=== PATIENT | female | born 1970 | race Caucasian/White ===

== ENCOUNTER 2017-09-14 10:45 | Emergency (ER) | payer BC, OTHER, SELFPAY ==
[2017-09-14] MEDS ORDERED: Sodium Chloride 0.9% 1000 ML 1,000 ML IV STA (11:17)
[2017-09-14] MEDS ORDERED: PROTONIX 40 MG IV IV ONE ×2 (11:17→11:25)
--- NOTE | 2017-09-14 11:23 | ERPHSYRPT ---
- History of Present Illness Time Seen by Provider: 09/14/17 10:55 Historian: patient Exam Limitations: no limitations Patient Subjective Stated Complaint: vomiting, diarrhea and pain to mid upper right abd radiating to mid back. 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 n/v/d present report of recent migraine though steele subsided last pm Physician History: mild to mod epigastric cramps for one day rad to back no injury, pt refused pain med, hx GB and hysterectomy, no fever, +NVD, no blood in stool Timing/Duration: yesterday Quality: cramping Abdominal Pain Onset Location: epigastric Pain Radiation: back Severity of Pain-Max: mild Severity of Pain-Current: mild Allergies/Adverse Reactions: Cephalosporins Allergy (Severe, Verified 09/14/17 11:12) ANAPHALAXIS Sulfa (Sulfonamide Antibiotics) Allergy (Severe, Verified 09/14/17 11:12) Swelling Home Medications: Sumatriptan Succinate [Imitrex 50 mg] 100 mg PO Q6H PRN PRN 11/12/15 [History] Nadolol 10 mg PO DAILY 10/20/16 [History] Hx Tetanus, Diphtheria Vaccination/Date Given: Yes (UNKNOWN) Hx Influenza Vaccination/Date Given: Yes Hx Pneumococcal Vaccination/Date Given: No - Review of Systems Constitutional: No Symptoms Eyes: No Symptoms Ears, Nose, & Throat: No Symptoms Respiratory: No Symptoms Cardiac: No Symptoms Abdominal/Gastrointestinal: Abdominal Pain, Nausea, Vomiting, Diarrhea, No Hematochezia Musculoskeletal: Back Pain Skin: No Symptoms Neurological: No Dizziness Psychological: No Symptoms - Past Medical History Pertinent Past Medical History: Yes Neurological History: Migraines ENT History: No Pertinent History Cardiac History: Other Respiratory History: Bronchitis Endocrine Medical History: No Pertinent History Musculoskeletal History: No Pertinent History GI Medical History: No Pertinent History History: No Pertinent History Psycho-Social History: No Pertinent History Female Reproductive Disorders: No Pertinent History Other Medical History: mitral valve prolapse, and arrhythmia - Past Surgical History Past Surgical History: Yes Neuro Surgical History: No Pertinent History Cardiac: No Pertinent History Respiratory: No Pertinent History Gastrointestinal: Cholecystectomy Genitourinary: No Pertinent History Musculoskeletal: No Pertinent History Female Surgical History: Hysterectomy, Tubal Ligation Other Surgical History: breast implants - Social History Smoking Status: Current some day smoker How long have you smoked: 35 Exposure to second hand smoke: Yes Drug Use: none Patient Lives Alone: No - Female History Hx Now: No - Nursing Vital Signs Nursing Vital Signs: Initial Vital Signs Temperature 98.0 F 09/14/17 11:04 Pulse Rate 69 09/14/17 11:04 Respiratory Rate 18 09/14/17 11:04 Blood Pressure 140/65 09/14/17 11:04 Pain Scale Pain Intensity 7 - Physical Exam General Appearance: no apparent distress Eye Exam: eyes nml inspection Ears, Nose, Throat Exam: moist mucous membranes Neck Exam: normal inspection Respiratory Exam: normal breath sounds Cardiovascular Exam: regular rate/rhythm Gastrointestinal/Abdomen Exam: soft, tenderness, No rebound Extremity Exam: normal inspection Neurologic Exam: alert, oriented x 3, cooperative Skin Exam: normal color, warm, dry - Course Nursing assessment & vital signs reviewed: Yes - Radiology Exams Chest X-ray Interpretation: Discussed w/ radiologist, Negative - CT Exams Abdomen/Pelvis CT Interpretation: Negative, Discussed w/radiologist Ordered Tests: Active Orders 24 hr Category Date Time Status ABDOMEN AND PELVIS W/0 CONTRAS [CT] Stat Exams 09/14/17 11:18 Completed CHEST 2 VIEWS (PA AND LAT) Stat Exams 09/14/17 11:18 Completed CBC W DIFF Stat Lab 09/14/17 11:30 Completed CMP Stat Lab 09/14/17 11:30 Completed CULTURE,URINE Stat Lab 09/14/17 11:55 Received LIPASE Stat Lab 09/14/17 11:30 Completed Lactic Acid Stat Lab 09/14/17 11:17 Completed TROPONIN Q3H Lab 09/14/17 11:30 Completed TROPONIN Q3H Lab 09/14/17 14:30 Ordered TROPONIN Q3H Lab 09/14/17 17:30 Ordered TROPONIN Q3H Lab 09/14/17 20:30 Ordered TROPONIN Q3H Lab 09/14/17 23:30 Ordered UA W/ MICROSCOPIC Stat Lab 09/14/17 11:55 Completed Medication Summary Discontinued Medications Generic Name Dose Route Start Last Admin Trade Name Freq PRN Reason Stop Dose Admin Sodium Chloride 1,000 mls @ 999 mls/hr 09/14/17 11:17 09/14/17 11:27 Sodium Chloride 0.9% 1000 Ml IV 09/14/17 12:17 999 mls/hr .Q1H1M STA Administration Sodium Chloride Confirm 09/14/17 11:25 Sodium Chloride 0.9% 1000 Ml Administered 09/14/17 11:26 Dose 1,000 mls @ ud .ROUTE .STK-MED ONE Pantoprazole Sodium 40 mg 09/14/17 11:17 09/14/17 11:27 Protonix 40 Mg Iv IV 09/14/17 11:18 40 mg STAT ONE Administration Pantoprazole Sodium Confirm 09/14/17 11:25 Protonix 40 Mg Iv Administered 09/14/17 11:26 Dose 40 mg IV .STK-MED ONE Lab/Rad Data: Laboratory Result Diagrams 09/14/17 11:30 09/14/17 11:30 Laboratory Results 09/14/17 09/14/17 09/14/17 Range/Units 11:55 11:30 11:30 WBC (4.0-10.5) K/mm3 RBC (4.1-5.4) M/mm3 Hgb (12.0-16.0) gm/dl Hct (35-47) % MCV (78-100) fl MCH (26-32) pg MCHC (32-36) g/dl RDW (11.5-14.0) % Plt Count (150-450) K/mm3 MPV (6-9.5) fl Gran % (36.0-66.0) % Lymphocytes % (24.0-44.0) % Monocytes % (0.0-12.0) % Eosinophils % (0.00-5.0) % Basophils % (0.0-0.4) % Basophils # (0-0.4) Sodium 137 (136-145) mEq/L Potassium 3.6 (3.5-5.1) mEq/L Chloride 103 (98-107) mEq/L Carbon Dioxide 27.1 (21-32) mEq/L Anion Gap 10.8 (5-15) MEQ/L BUN 15 (9-20) mg/dL Creatinine 0.76 (0.55-1.30) mg/dl Estimated GFR > 60 ML/MIN Glucose 92 (70-110) MG/DL Lactic Acid (0.4-2.0) Calcium 8.3 L (8.5-10.1) mg/dL Total Bilirubin 0.50 (0.2-1.0) mg/dL AST 47 H (15-37) U/L ALT 45 (12-78) U/L Alkaline Phosphatase 71 (46-116) U/L Troponin I < 0.017 (0.000-0.056) ng/ml Serum Total Protein 6.9 (6.4-8.2) gm/dL Albumin 3.6 (3.4-5.0) g/dL Lipase 161 (73-393) U/L Ur Collection Type CLEAN CATCH Urine Color YELLOW (YELLOW) Urine Appearance CLEAR (CLEAR) Urine pH 8.0 (5-6) Ur Specific [place] 1.005 (1.005-1.025) Urine Protein NEGATIVE (Negative) Urine Ketones NEGATIVE (NEGATIVE) Urine Blood MODERATE (0-5) Ortega/ul Urine Nitrite NEGATIVE (NEGATIVE) Urine Bilirubin NEGATIVE (NEGATIVE) Urine Urobilinogen 4 (0-1) mg/dL Ur Leukocyte Esterase NEGATIVE (NEGATIVE) Urine Microscopic RBC 5-10 (0-2) /HPF Ur Epithelial Cells MANY (FEW) /HPF Urine Bacteria MODERATE (NEGATIVE) /HPF Urine Culture Reflexed YES (NO) Urine Glucose NEGATIVE (NEGATIVE) mg/dL Specimen Received 09/14/17 1200 09/14/17 09/14/17 Range/Units 11:30 11:17 WBC 3.7 L (4.0-10.5) K/mm3 RBC 4.62 (4.1-5.4) M/mm3 Hgb 14.2 (12.0-16.0) gm/dl Hct 41.7 (35-47) % MCV 90.3 (78-100) fl MCH 30.7 (26-32) pg MCHC 34.1 (32-36) g/dl RDW 13.1 (11.5-14.0) % Plt Count 163 (150-450) K/mm3 MPV 10.8 H (6-9.5) fl Gran % 69.3 H (36.0-66.0) % Lymphocytes % 18.6 L (24.0-44.0) % Monocytes % 10.7 (0.0-12.0) % Eosinophils % 1.1 (0.00-5.0) % Basophils % 0.3 (0.0-0.4) % Basophils # 0.01 (0-0.4) Sodium (136-145) mEq/L Potassium (3.5-5.1) mEq/L Chloride (98-107) mEq/L Carbon Dioxide (21-32) mEq/L Anion Gap (5-15) MEQ/L BUN (9-20) mg/dL Creatinine (0.55-1.30) mg/dl Estimated GFR ML/MIN Glucose (70-110) MG/DL Lactic Acid 0.8 (0.4-2.0) Calcium (8.5-10.1) mg/dL Total Bilirubin (0.2-1.0) mg/dL AST (15-37) U/L ALT (12-78) U/L Alkaline Phosphatase (46-116) U/L Troponin I (0.000-0.056) ng/ml Serum Total Protein (6.4-8.2) gm/dL Albumin (3.4-5.0) g/dL Lipase (73-393) U/L Ur Collection Type Urine Color (YELLOW) Urine Appearance (CLEAR) Urine pH (5-6) Ur Specific [place] (1.005-1.025) Urine Protein (Negative) Urine Ketones (NEGATIVE) Urine Blood (0-5) Ortega/ul Urine Nitrite (NEGATIVE) Urine Bilirubin (NEGATIVE) Urine Urobilinogen (0-1) mg/dL Ur Leukocyte Esterase (NEGATIVE) Urine Microscopic RBC (0-2) /HPF Ur Epithelial Cells (FEW) /HPF Urine Bacteria (NEGATIVE) /HPF Urine Culture Reflexed (NO) Urine Glucose (NEGATIVE) mg/dL Specimen Received - Progress Progress: improved Discussed with : Lauren Will see patient in: office Counseled pt/family regarding: lab results, diagnosis, need for follow-up, rad results - Departure Time of Disposition: 13:21 Departure Disposition: Home Clinical Impression: Abdominal pain Qualifiers: Abdominal location: epigastric Qualified Code(s): R10.13 - Epigastric pain Condition: Stable Critical Care Time: No Referrals: CARLOS NIXON [Primary Care Provider] - Additional Instructions: differential dw pt as viral syndrome, gerd, pud, cancer Prescriptions: PANTOPRAZOLE 40 mg Tablet [Protonix 40MG Tablet] 40 mg PO QPM #10 tab
[2017-09-14] MEDS ORDERED: Sodium Chloride 0.9% 1000 ML 1,000 ML ONE (11:25)
[2017-09-14 11:34] LABS: BASOPHIL % 0.3 % (0.0-0.4); Eosinophil % 1.1 % (0.00-5.0); Granulocytes % 69.3 % (36.0-66.0); Lymphocytes % 18.6 % (24.0-44.0); Mean Cell Volume 90.3 fl (78-100); Mean Corpuscular Hemoglobin 30.7 pg (26-32); Mean Platelet Volume 10.8 fl (6-9.5); Monocytes % 10.7 % (0.0-12.0); Platelet Count 163 K/mm3 (150-450); Red Blood Count 4.62 M/mm3 (4.1-5.4); Red Cell Distribution Width 13.1 % (11.5-14.0); White Blood Count 3.7 K/mm3 (4.0-10.5)
[2017-09-14 11:54] LABS: ALBUMIN 3.6 g/dL (3.4-5.0); ALKALINE PHOSPHATASE 71 U/L (46-116); ANION GAP 10.8 MEQ/L (5-15); BLOOD UREA NITROGEN 15 mg/dL (9-20); CHLORIDE 103 mEq/L (98-107); Carbon Dioxide 27.1 mEq/L (21-32); Glucose 92 MG/DL (70-110); LIPASE 161 U/L (73-393); Potassium 3.6 mEq/L (3.5-5.1); SGOT/AST 47 U/L (15-37); SGPT/ALT 45 U/L (12-78); SODIUM 137 mEq/L (136-145); Total Protein 6.9 gm/dL (6.4-8.2)
[2017-09-14 12:00] LABS: Collection Type CLEAN CATCH
[2017-09-14 12:01] LABS: Bilirubin NEGATIVE (NEGATIVE); Blood MODERATE Ery/ul (0-5); COMPLETE URINE MICROSCOPIC? YES; Glucose NEGATIVE (NEGATIVE); Leukocyte Esterase NEGATIVE (NEGATIVE)
[2017-09-14 12:06] LABS: ADD URINE CULTURE? YES (NO); Bacteria MODERATE /HPF (NEGATIVE); Epithelial Cells MANY /HPF (FEW)
--- NOTE | 2017-09-14 12:06 | XRAY ---
Indication: Epigastric pain and vomiting. Comparison: October 20, 2016. PA/lateral chest again demonstrates normal heart, lungs, and bony thorax.
--- NOTE | 2017-09-14 12:09 | XRAY ---
Indication: Mid abdominal pain. Nausea, vomiting, diarrhea. Multiple contiguous axial images obtained through the abdomen and pelvis without contrast as ordered. Comparison: March 26, 2014. Lung bases are clear with again left base calcified granuloma. Heart is not enlarged. Again partially visualized bilateral breast implants. Noncontrasted stomach and bowel loops appear nonobstructed. There is again mild/moderate diffuse scattered colonic fecal debris throughout. Normal appendix. Again previous cholecystectomy and hysterectomy. No free fluid/air. Remaining liver, pancreas, spleen, adrenal glands, kidneys, ureters, bladder, and aorta appear unremarkable for noncontrast exam. Osseous structures intact. Impression: Again fecal stasis without obstruction. No new/acute intra-abdominal or pelvic abnormalities on this noncontrast exam. CTDI 18.99
[2017-09-14 13:38] VITALS: BP 130/52; PULSE 66; O2SAT 98
== END 2017-09-14 13:49 | disposition home or self-care (01) ==
LOC: ED 10:45
DX: R10.13 Epigastric pain (principal); R11.2 Nausea with vomiting, unspecified; R19.7 Diarrhea, unspecified; M54.9 Dorsalgia, unspecified
CPT/HCPCS: 36000; 36415; 71020; 74176; 80053; 81000; 83605; 83690; 84484; 85025; 87086; 96374; 99284

== ENCOUNTER 2018-01-11 06:59 | Day surgery (SDC) | payer BC ==
[~2018-01-11 06:59] MED LIST: Lactated Ringers 1,000 ML IV SCH
[2018-01-11] MEDS ORDERED: DIPRIVAN 200 MG/20 ML IV ONE (07:00)
[2018-01-11] MEDS ORDERED: SUBLIMAZE 250 MCG/5 ML IV ONE (07:00)
[2018-01-11] MEDS ORDERED: BRIDION 200MG/2ML IV ONE (07:00)
[2018-01-11] MEDS ORDERED: Versed 2 MG/2 ML Injection IV ONE (07:00)
[2018-01-11] MEDS ORDERED: Zemuron 100 MG/10 ML IV ONE (07:00)
[2018-01-11] MEDS ORDERED: Sensorcaine 0.25% 10 ML ONE (07:02)
[2018-01-11] MEDS ORDERED: Lactated Ringers 1,000 ML IV ONE ×4 (07:02→08:24)
[2018-01-11] MEDS ORDERED: TORAdol 30 mg Injection ONE (08:11)
[2018-01-11] MEDS ORDERED: TORAdol 30 mg Injection IV SCH (08:15)
[2018-01-11] MEDS ORDERED: Levofloxacin 500MG/100ML D5W 500 MG/100 ML BAG IV SCH (09:00)
[2018-01-11] MEDS ORDERED: CLINDAMYCIN-D5W 900 MG/50 ML*** 900 MG/50 ML BAG IV SCH (09:00)
[2018-01-11 12:14] VITALS: O2SAT 96
--- NOTE | 2018-01-11 13:21 | HP ---
DATE OF SURGERY: 01/11/2018 ADMISSION DIAGNOSIS: ANTICIPATED PROCEDURE: HISTORY OF PRESENT ILLNESS: A 47 year-old she has a 3 to 4 cm cyst right ovary, possible small cyst left ovary. She has some pelvic pain. She has abdominal wall pain. She was seen and examined prior to surgical intervention. Concern that she might have some umbilical hernia. There is no umbilical hernia but she did have some tenderness under umbilical incision. PAST MEDICAL HISTORY: ALLERGIES: PER THE CHART. MEDICATIONS: Per the chart. PAST SURGICAL HISTORY: Tubal ligation. Previous hysterectomy with Pfannenstiel incision. SOCIAL HISTORY: Negative. FAMILY HISTORY: Negative. PHYSICAL EXAMINATION: Alert. She did have a migraine immediately prior to surgery. VITAL SIGNS: Normal. CHEST: Clear. COR: Regular. IMPRESSION: Pelvic pain, abdominal wall pain. PLAN: Laparoscopy treatment as necessary, adhesiolysis as necessary.
--- NOTE | 2018-01-11 13:32 | OP ---
SURGERY DATE/TIME: 01/11/2018 1019 PREOPERATIVE DIAGNOSIS: Right ovarian cyst, pelvic pain, abdominal wall pain. POSTOPERATIVE DIAGNOSIS: Anterior abdominal wall adhesion. Right ovary cyst x2, right tube cyst x1. PROCEDURES: 1) Adhesiolysis. 2) Rupture with cautery of two cysts on the right ovary and one on the right tube. SURGEON: Demetri Palumbo M.D. ANESTHESIA: General. COMPLICATIONS: None. CONDITION: Stable. INDICATION: A 47 year-old. DESCRIPTION OF PROCEDURE: Taken to surgery. General anesthetic. Routine prep and drape. Time out performed. Veress needle inserted. Opening pressure 1, insufflating pressure 14. It did have the suggestion of adhesions and there were adhesions present. A 5 port was placed out to the right. Adhesions were seen medial inferior to the left. Second port was placed down to the right looking back. There was a 3 inch band of omentum stuck against the previous tubal ligation incision starting at the umbilicus running inferiorly. This was all taken down with the ligature and was dry. The anterior abdominal wall was freed. Falciform was normal. The Justice catheter was normal. The left ovary was consistent with patient's age and no visible pathology. The right ovary two cysts were present one on top and one underneath and one on the tube. All three of these cysts were sequentially taken with the hook cautery and marsupialized. Hemostasis satisfactory. There were no other abnormal findings. The right ureter was well away from the site of cautery at least 2 inches away. Pelvis was totally free. Small bowel looked normal. Colon looked normal. Hole closure device used at umbilical port. Skin closed with 4-0 Vicryl and Steri-Strips. The patient tolerated the procedure satisfactorily.
[2018-01-11 14:43] VITALS: BP 130/73; PULSE 65
== END 2018-01-11 12:40 | disposition home or self-care (01) ==
LOC: SDC 06:59
PROVIDERS: ATTEND Surgery
PROC: 0DNW4ZZ Release Peritoneum, Percutaneous Endoscopic Approach (ICD-10-PCS; principal; 2018-01-11)
PROC: 0UB54ZZ Excision of Right Fallopian Tube, Percutaneous Endoscopic Approach (ICD-10-PCS; 2018-01-11)
PROC: 0UB04ZZ Excision of Right Ovary, Percutaneous Endoscopic Approach (ICD-10-PCS; 2018-01-11)
DX: K66.0 Peritoneal adhesions (postprocedural) (postinfection) (principal); N83.202 Unspecified ovarian cyst, left side; N83.201 Unspecified ovarian cyst, right side; R10.9 Unspecified abdominal pain; R10.2 Pelvic and perineal pain
CPT/HCPCS: 87086; J1885; J1956; J2250; J2704; J3010

== ENCOUNTER 2022-01-18 07:47 | Day surgery (SDC) | payer BC ==
[2022-01-18] MEDS ORDERED: Depo-Medrol 40 MG/ML IM ONE (07:48)
[2022-01-18] MEDS ORDERED: Sodium Chloride 0.9(Preservative Free) 10 ML IJ ONE (07:48)
[2022-01-18] MEDS ORDERED: Lactated Ringers 1,000 ML IV ONE (09:15)
[2022-01-18] MEDS ORDERED: DIPRIVAN 200 MG/20 ML IV ONE (09:51)
--- NOTE | 2022-01-18 10:48 | XRAY ---
Indication: Right L4-S1 S1 transforaminal RUZI. Intraoperative fluoroscopy provided for 31 seconds. 4 digital spot image demonstrate posterior needle tips projecting over the expected right L4 and L5 nerve roots. Small amount of contrast injected for needle tip placement. Correlate with intraoperative findings/report.
--- NOTE | 2022-01-18 10:48 | XRAY ---
31 seconds fluoroscopy time in surgery for L4-S1 transforaminal RUIZ.
== END 2022-01-18 10:17 | disposition home or self-care (01) ==
LOC: SDC-PAIN 07:47
PROVIDERS: ATTEND Psychiatry & Neurology Pain Medicine
DX: M47.816 Spondylosis without myelopathy or radiculopathy, lumbar region (principal); Z79.899 Other long term (current) drug therapy
CPT/HCPCS: 64483; 64484; 72100; 77003; J1030; J2704; Q9966

== ENCOUNTER 2022-07-22 16:39 | Emergency (ER) | payer BC ==
[2022-07-22 17:09] LABS: Absolute Neutrophil Ct (ANC) 3.08 x10^3/uL (1.4-6.9); Basophil (Absolute #) 0.02 x10^3/uL (0-0.4); Eosinophil % 4.6 % (0.00-5.0); Eosinophil (Absolute #) 0.23 x10^3/uL (0-0.5); Hematocrit 31.5 % (35-47); Hemoglobin 10.1 g/dL (12.0-16.0); Lymphocyte (Absolute #) 1.13 x10^3/uL (1.0-4.6); Lymphocytes % 22.5 % (24.0-44.0); Mean Cell Volume 93.8 fL (78-100); Mean Corpuscular Hemoglobin 30.1 pg (26-32); Mean Corpuscular Hgb Concent. 32.1 g/dL (32-36); Mean Platelet Volume 10.8 fL (7.5-11.0); Monocyte (Absolute #) 0.54 x10^3/uL (0.0-1.3); Monocytes % 10.8 % (0.0-12.0); Neutrophil % 61.3 % (36.0-66.0); Platelet Count 168 x10^3/uL (150-450); Red Blood Count 3.36 x10^6/uL (4.1-5.4); Red Cell Distribution Width 13.7 % (11.5-14.0)
--- NOTE | 2022-07-22 17:11 | ERPHSYRPT ---
- History of Present Illness Source: patient Exam Limitations: no limitations Patient Subjective Stated Complaint: Pt had back surgery 5 days ago and yesterday her left foot started hurting and it radiates up her left leg, today she noticed some swelling ot the left foot and so she called the surgeon and they advised her to go to her local hospital to be checked for a DVT Triage Nursing Assessment: Pt brought to the ER by her , hypertensive, rates leg and back pain as 6/10, mild swelling to left foot, surgical incision to lower abdomen for the back with dressing and abdominal binder on, pulses normal, skin n/w/d, walked to room on own with a slow unsteady gait Timing/Duration: yesterday Associated Symptoms: denies symptoms Hx Tetanus, Diphtheria Vaccination/Date Given: Yes (UNKNOWN) Hx Influenza Vaccination/Date Given: Yes Hx Pneumococcal Vaccination/Date Given: No <LAURA ESCOBEDO - Last Filed: 07/22/22 18:27> <ALINE BUCHANAN - Last Filed: 07/22/22 18:59> - History of Present Illness Time Seen by Provider: 07/22/22 17:05 Physician History: Pt had back surgery 5 days ago and yesterday her left foot started hurting and it radiates up her left leg, today she noticed some swelling ot the left foot and so she called the surgeon and they advised her to go to her local hospital to be checked for a DVT. Patient is 51-year-old female without any significant past medical history recently patient has to undergone sacroiliac area surgery 5 days ago. Surgery was done through anterior approach. Patient has a surgical wound on her left lower abdomen area. Since last 1 to 2 days she started having some pain at the ankle area so she called her surgeon and he advised her to come to the emergency room to check out for deep vein thrombosis. Patient walked into the ER without any difficulty. Patient denies any other symptoms except for some bruising in the abdominal area where the surgical scar is. She denies any discharge from the surgical scar. She still has some bruise on her left groin area. She denies any fever chills nausea vomiting headache dizziness. (LAURA ESCOBEDO) Allergies/Adverse Reactions: cephalexin [From Keflex] Allergy (Severe, Verified 07/22/22 17:02) Cephalosporins Allergy (Severe, Verified 07/22/22 17:02) ANAPHALAXIS Sulfa (Sulfonamide Antibiotics) Allergy (Severe, Verified 07/22/22 17:02) Swelling sulfamethoxazole [From Bactrim] Allergy (Severe, Verified 07/22/22 17:02) Swelling of Tongue and Lips trimethoprim [From Bactrim] Allergy (Severe, Verified 07/22/22 17:02) Swelling of Tongue and Lips bee venom protein (honey bee) Allergy (Intermediate, Verified 07/22/22 17:02) Swelling Home Medications: Ondansetron ODT 4 MG [Zofran Odt 4 mg] 4 mg PO Q6H PRN PRN 01/08/18 [History] Nadolol 20 mg [Corgard 20 MG] 10 mg PO HS 07/22/22 [History] Oxycodone HCl 5 mg Ir [Oxy-IR 5 MG] 5 - 10 mg PO Q4-6HPRN PRN 07/22/22 [History] diazePAM [Diazepam] 2.5 - 5 mg PO QID 07/22/22 [History] Travel Risk - International Travel Have you traveled outside of the country in past 3 weeks: No - Coronavirus Screening Are you exhibiting any of the following symptoms?: No Close contact with a COVID-19 positive Pt in past 14-21 Days: No - Vaccine Status Have you recieved a Covid-19 vaccination: Yes 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 No calf tenderness, redness or swelling) <FANNY,LAURA - Last Filed: 07/22/22 18:27> - Past Medical History Pertinent Past Medical History: Yes Neurological History: Migraines ENT History: No Pertinent History Cardiac History: Arrhythmia, Other Respiratory History: Other Endocrine Medical History: No Pertinent History Musculoskeletal History: Degenerative Disk Disease, Osteoarthritis GI Medical History: No Pertinent History History: No Pertinent History Psycho-Social History: No Pertinent History Female Reproductive Disorders: No Pertinent History Other Medical History: COVID 2020, MITRAL VALVE PROLAPSE. SX HX: HYSTERECTOMY, TUBAL LIGATION, BREAST AUGMENTATION, CHOLECYSTECTOMY, ABDOMINAL HERNIA REPAIR - Past Surgical History Past Surgical History: Yes Neuro Surgical History: No Pertinent History Cardiac: No Pertinent History Respiratory: No Pertinent History Gastrointestinal: Cholecystectomy, Hernia Repair Genitourinary: No Pertinent History Musculoskeletal: No Pertinent History, Orthopedic Surgery Female Surgical History: Hysterectomy, Tubal Ligation Other Surgical History: breast implants, skin cancer removal, back surgery - Social History Smoking Status: Former smoker How long have you smoked: 35 Exposure to second hand smoke: No Drug Use: none Patient Lives Alone: No <FANNY - Last Filed: 07/22/22 18:27> - Physical Exam General Appearance: no apparent distress, alert Eye Exam: PERRL/EOMI, eyes nml inspection Ears, Nose, Throat Exam: normal ENT inspection, TMs normal, pharynx normal, moist mucous membranes Neck Exam: normal inspection, non-tender, supple, full range of motion Respiratory Exam: normal breath sounds, lungs clear, No respiratory distress Cardiovascular Exam: regular rate/rhythm, normal heart sounds, normal peripheral pulses Gastrointestinal/Abdomen Exam: soft, normal bowel sounds, No tenderness, No mass Back Exam: normal inspection, normal range of motion, No CVA tenderness, No vertebral tenderness Extremity Exam: normal inspection, normal range of motion, pelvis stable, other (mild tenderness at achillis tendon area on left side. Calf nontender on squeezing), No deformities, No lacerations, No penetrations, No jairo's sign, No inflammation, No joint swelling, No limited range of motion, No pedal edema, No swelling, No tenderness Neurologic Exam: alert, oriented x 3, cooperative, normal mood/affect, nml cerebellar function, nml station & gait, sensation nml, No motor deficits Skin Exam: normal color, warm, dry, No rash Lymphatic Exam: No adenopathy SpO2 Interpretation: normal SpO2: 100 O2 Delivery: Room Air <FANNY - Last Filed: 07/22/22 18:27> - Nursing Vital Signs Nursing Vital Signs: Initial Vital Signs Temperature 97.5 F 07/22/22 16:46 Pulse Rate 66 07/22/22 16:46 Blood Pressure 169/101 07/22/22 16:46 O2 Sat by Pulse Oximetry 100 07/22/22 16:46 Pain Scale Pain Intensity 5 - Course Nursing assessment & vital signs reviewed: Yes - Radiology Ultrasound Exam Venous Lower Extremity Ultrasound: tele radiology report <LAURA ESCOBEDO - Last Filed: 07/22/22 18:27> - Course Nursing assessment & vital signs reviewed: Yes - Radiology Ultrasound Exam Left Venous Lower Extremity Ultrasound: Other (No DVT per rad staff) <LAINE BUCHANAN - Last Filed: 07/22/22 18:59> Ordered Tests: Active Orders 24 hr Category Date Time Status VENOUS UNILAT/LIMITED EXTREMIT [US] Stat Exams 07/22/22 18:04 Taken CBC W DIFF Stat Lab 07/22/22 17:06 Completed CMP Stat Lab 07/22/22 17:06 Completed D-DIMER QUANTITATIVE Stat Lab 07/22/22 17:06 Completed Lab/Rad Data: Laboratory Result Diagrams 07/22/22 17:06 07/22/22 17:06 Laboratory Results 07/22/22 07/22/22 07/22/22 Range/Units 17:06 17:06 17:06 WBC 5.0 (4.0-10.5) x10^3/uL RBC 3.36 L (4.1-5.4) x10^6/uL Hgb 10.1 L (12.0-16.0) g/dL Hct 31.5 L (35-47) % MCV 93.8 (78-100) fL MCH 30.1 (26-32) pg MCHC 32.1 (32-36) g/dL RDW 13.7 (11.5-14.0) % Plt Count 168 (150-450) x10^3/uL MPV 10.8 (7.5-11.0) fL Gran % 61.3 (36.0-66.0) % Immature Gran % (Auto) 0.4 (0.00-0.4) % Nucleat RBC Rel Count 0.0 (0.00-0.1) % Eos # (Auto) 0.23 (0-0.5) x10^3/uL Immature Gran # (Auto) 0.02 (0.00-0.03) x10^3u/L Absolute Lymphs (auto) 1.13 (1.0-4.6) x10^3/uL Absolute Monos (auto) 0.54 (0.0-1.3) x10^3/uL Absolute Nucleated RBC 0.00 (0.00-0.01) x10^3u/L Lymphocytes % 22.5 L (24.0-44.0) % Monocytes % 10.8 (0.0-12.0) % Eosinophils % 4.6 (0.00-5.0) % Basophils % 0.4 (0.0-0.4) % Absolute Granulocytes 3.08 (1.4-6.9) x10^3/uL Basophils # 0.02 (0-0.4) x10^3/uL D-Dimer 0.79 H* (0.0-0.50) mg/L Sodium 136 L (137-145) mmol/L Potassium 4.0 (3.5-5.1) mmol/L Chloride 101 (98-107) mmol/L Carbon Dioxide 32 H (22-30) mmol/L Anion Gap 7.9 (5-15) MEQ/L BUN 11 (7-17) mg/dL Creatinine 0.57 (0.52-1.04) mg/dL Estimated GFR > 60.0 ML/MIN Glucose 107 H (74-106) mg/dL Calcium 8.9 (8.4-10.2) mg/dL Total Bilirubin 0.60 (0.2-1.3) mg/dL AST 47 H (14-36) U/L ALT 251 H (0-35) U/L Alkaline Phosphatase 145 H (38-126) U/L Serum Total Protein 6.6 (6.3-8.2) g/dL Albumin 3.9 (3.5-5.0) g/dL - Progress Progress: improved, pain not gone completely Counseled pt/family regarding: lab results, diagnosis, need for follow-up, rad results <LAURA ESCOBEDO - Last Filed: 07/22/22 18:27> - Progress Progress: re-examined <LAINE BUCHANAN - Last Filed: 07/22/22 18:59> - Progress Progress Note: 07/22/22 18:38 taken over at change of shift from Dr. Escobedo after discussion of pending US, introductions and course. . No Hx trauma to extremity and nontender without garfield stepoff. She denies any trauma to left leg or pain there. 07/22/22 18:54 07/22/22 18:54 She has no other concerns and does not wish furhter w/u in hosp at this time and is aware of continueing risk for DVT and has the capacity to make this choice. (LAINE BUCHANAN) - Departure Departure Disposition: Home <LAURA ESCOBEDO - Last Filed: 07/22/22 18:27> - Departure Critical Care Time: No <BUCHANANLAINE MICAH - Last Filed: 07/22/22 18:59> - Departure Clinical Impression: post op leg swelling Condition: Good Referrals: CARLOS MAX [Primary Care Provider] - Follow up/PCP as directed Instructions: Lymphedema (DC), Deep Vein Thrombosis (Blood Clots in the Legs) (DC), High Blood Pressure (DC) Additional Instructions: follow-up Blood Pressure with PMD, Return meantime if any symptoms. Follow-up with your DrLoida for leg swelling . Although we found no DVT, there still is a risk for possible development so f/u is improtant and return meantime if not improving or any symptoms develope ishaan shortness of breath, redness or more swelling or pain of fever or dizziness Chest pain shortness of breath of other concerns. . THerefore we are providing the instructions for DVT even though we have no evide nce for this, to help in watching for any signs or symptoms of concern. Your blood count is a little low at hemoglobin of 10 and liver tests a little elevated ( as well as the D dimer - which could be post operative effects) - all to followup with your this week.
[2022-07-22 17:20] LABS: ALBUMIN 3.9 g/dL (3.5-5.0); ALKALINE PHOSPHATASE 145 U/L (38-126); ANION GAP 7.9 MEQ/L (5-15); BLOOD UREA NITROGEN 11 mg/dL (7-17); CHLORIDE 101 mmol/L (98-107); Calcium 8.9 mg/dL (8.4-10.2); Carbon Dioxide 32 mmol/L (22-30); Creatinine 1 0.57 mg/dL (0.52-1.04); EST GLOMERULAR FILTRATION RATE > 60.0 ML/MIN; Glucose 107 mg/dL (74-106); SGOT/AST 47 U/L (14-36); SGPT/ALT 251 U/L (0-35); SODIUM 136 mmol/L (137-145); Total Protein 6.6 g/dL (6.3-8.2)
[2022-07-22 18:12] VITALS: BP 156/66; PULSE 68
[2022-07-22 19:08] VITALS: O2SAT 98
--- NOTE | 2022-07-22 19:56 | XRAY ---
Indication: Left leg pain following surgery. Two-dimensional sonogram and color Doppler imaging of the major venous vessels of the left leg performed. Comparison: None No thrombus seen in the examined deep venous vessels of the left leg including greater saphenous vein. Veins demonstrate normal compressibility. Venous waveforms are normal with and without augmentation. Impression: Left leg negative for DVT. Comment: Preliminary report was given.
== END 2022-07-22 19:08 | disposition home or self-care (01) ==
LOC: ED 16:39
DX: R60.0 Localized edema (principal); M79.662 Pain in left lower leg; Z79.891 Long term (current) use of opiate analgesic; Z79.899 Other long term (current) drug therapy; Z86.16 Personal history of COVID-19
CPT/HCPCS: 36415; 80053; 85025; 85379; 93971; 99283

== ENCOUNTER 2022-08-15 20:26 | Emergency (ER) | payer BC ==
[2022-08-15 22:10] VITALS: BP 133/83; PULSE 61; O2SAT 98
--- NOTE | 2022-08-15 22:37 | ERPHSYRPT ---
- History of Present Illness Time Seen by Provider: 08/15/22 21:30 Source: patient Exam Limitations: no limitations Patient Subjective Stated Complaint: I hit my stanton on the wood bed rail and I have a knot. I'm not sure if it's a contusion or a blood clot, but I'm 4 weeks post op from a back surgery so I was concerned. Triage Nursing Assessment: pt came back in wheelchair, family at bedside. Pt has a swollen knot on her rt lower ext, no bruising noted. Pt hit her lower ext on the wood bed rail this evening and is concerned about a blood clot due to being post op 4 weeks from back surgery. Rt lower ext is tender to touch and is painful when ambulating. Physician History: Patient is a 51-year-old white female who had recent back surgery who was walking through the house and hit her right leg on her grand child's bed she has a large hematoma over the proximal right tibia. She is able to bear weight. Method of Injury: direct blow Occurred: just prior to arrival Quality: throbbing Severity of Pain-Max: mild Severity of Pain-Current: mild Lower Extremities Pain: leg: right Modifying Factors: Improves With: movement Associated Symptoms: none Allergies/Adverse Reactions: cephalexin [From Keflex] Allergy (Severe, Verified 08/15/22 21:37) Cephalosporins Allergy (Severe, Verified 08/15/22 21:37) ANAPHALAXIS Sulfa (Sulfonamide Antibiotics) Allergy (Severe, Verified 08/15/22 21:37) Swelling sulfamethoxazole [From Bactrim] Allergy (Severe, Verified 08/15/22 21:37) Swelling of Tongue and Lips trimethoprim [From Bactrim] Allergy (Severe, Verified 08/15/22 21:37) Swelling of Tongue and Lips bee venom protein (honey bee) Allergy (Intermediate, Verified 08/15/22 21:37) Swelling Home Medications: Ondansetron ODT 4 MG [Zofran Odt 4 mg] 4 mg PO Q6H PRN PRN 01/08/18 [History] Nadolol 20 mg [Corgard 20 MG] 10 mg PO HS 07/22/22 [History] Acetaminophen 500 mg [Tylenol Extra Strength 500 mg] 2 tab PO Q6H PRN PRN 08/15/22 [History] Tramadol HCl 50 mg [Ultram 50 mg] 1 tab PO Q4H PRN PRN 08/15/22 [History] Hx Tetanus, Diphtheria Vaccination/Date Given: Yes Hx Influenza Vaccination/Date Given: Yes Hx Pneumococcal Vaccination/Date Given: No Immunizations Up to Date: Yes Travel Risk - International Travel Have you traveled outside of the country in past 3 weeks: No - Coronavirus Screening Are you exhibiting any of the following symptoms?: No Close contact with a COVID-19 positive Pt in past 14-21 Days: No - Vaccine Status Have you recieved a Covid-19 vaccination: Yes 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: [employer] - Review of Systems Constitutional: No Fever, No Chills Eyes: No Symptoms Ears, Nose, & Throat: No Symptoms Respiratory: No Cough, No Dyspnea Cardiac: No Chest Pain, No Edema, No Syncope Abdominal/Gastrointestinal: No Abdominal Pain, No Nausea, No Vomiting, No Diarrhea Genitourinary Symptoms: No Dysuria Musculoskeletal: No Back Pain, No Neck Pain Skin: No Rash Neurological: No Dizziness, No Focal Weakness, No Sensory Changes Psychological: No Symptoms Endocrine: No Symptoms All Other Systems: Reviewed and Negative - Past Medical History Pertinent Past Medical History: Yes Neurological History: Migraines ENT History: No Pertinent History Cardiac History: Arrhythmia, Other Respiratory History: Other Endocrine Medical History: No Pertinent History Musculoskeletal History: Degenerative Disk Disease, Osteoarthritis GI Medical History: No Pertinent History History: No Pertinent History Psycho-Social History: No Pertinent History Female Reproductive Disorders: No Pertinent History Other Medical History: COVID 2020, MITRAL VALVE PROLAPSE. SX HX: HYSTERECTOMY, TUBAL LIGATION, BREAST AUGMENTATION, CHOLECYSTECTOMY, ABDOMINAL HERNIA REPAIR - Past Surgical History Past Surgical History: Yes Neuro Surgical History: No Pertinent History Cardiac: No Pertinent History Respiratory: No Pertinent History Gastrointestinal: Cholecystectomy, Hernia Repair Genitourinary: No Pertinent History Musculoskeletal: No Pertinent History, Orthopedic Surgery Female Surgical History: Hysterectomy, Tubal Ligation Other Surgical History: breast implants, skin cancer removal, back surgery - Social History Smoking Status: Former smoker How long have you smoked: 35 Exposure to second hand smoke: No Drug Use: none Patient Lives Alone: No - Nursing Vital Signs Nursing Vital Signs: Initial Vital Signs Temperature 97.6 F 08/15/22 21:27 Pulse Rate 79 08/15/22 21:27 Respiratory Rate 16 08/15/22 21:27 Blood Pressure 157/70 08/15/22 21:27 O2 Sat by Pulse Oximetry 100 08/15/22 21:27 Pain Scale Pain Intensity 2 - Physical Exam General Appearance: alert Eyes, Ears, Nose, Throat Exam: moist mucous membranes Neck Exam: non-tender, supple Cardiovascular/Respiratory Exam: chest non-tender, normal breath sounds, regular rate/rhythm, no respiratory distress Gastrointestinal/Abdominal Exam: non-tender, guarding Back Exam: other (There is evidence of recent back surgery), No vertebral tenderness Hips Exam: bilateral: non-tender, normal inspection, normal range of motion Legs Exam: right leg: pain, soft tissue tenderness, swelling Knees Exam: bilateral knee: non-tender, normal inspection, normal range of motion Ankle Exam: bilateral ankle: non-tender, normal inspection, normal range of motion Foot Exam: bilateral foot: non-tender, normal inspection, normal range of motion Neuro/Tendon Exam: normal sensation, normal motor functions Mental Status Exam: alert, oriented x 3, cooperative Skin Exam: normal color, warm, dry SpO2 Interpretation: normal SpO2: 98 O2 Delivery: Room Air - Course Nursing assessment & vital signs reviewed: Yes - Radiology Exams Lower Leg X-ray Interpretation: Interpreted by me, Negative Ordered Tests: Active Orders 24 hr Category Date Time Status LOWER LEG Stat Exams 08/15/22 22:02 Taken - Progress Progress: improved - Departure Departure Disposition: Home Clinical Impression: Contusion of leg Condition: Stable Critical Care Time: No Referrals: CARLOS MAX [Primary Care Provider] - Follow up/PCP as directed Instructions: Contusion (DC)
--- NOTE | 2022-08-16 09:04 | XRAY ---
Indication: Pain and swelling following trauma. Comparison: None 2 view right lower leg obtained. No bony, articular, or soft tissue abnormalities.
== END 2022-08-15 22:52 | disposition home or self-care (01) ==
LOC: ED 20:26
DX: S80.11XA Contusion of right lower leg, initial encounter (principal); W22.03XA Walked into furniture, initial encounter; Y93.01 Activity, walking, marching and hiking; Y92.003 Bedroom of unspecified non-institutional (private) residence as the place of occurrence of the external cause; Z79.899 Other long term (current) drug therapy; Z28.310 Unvaccinated for COVID-19; Z86.16 Personal history of COVID-19
CPT/HCPCS: 73590; 99282

== ENCOUNTER 2023-07-06 11:53 | Emergency (ER) | payer BC, OTHER ==
[2023-07-06 12:09] VITALS: RESP 20; TEMP 97
[2023-07-06] MEDS ORDERED: Sodium Chloride 0.9% 1000 ML 1,000 ML IV STA (12:24)
[2023-07-06] MEDS ORDERED: Zofran 4 MG/2 ML VIAL IV ONE (12:24)
[2023-07-06] MEDS ORDERED: Zofran 4 MG/2 ML VIAL ONE (12:33)
[2023-07-06] MEDS ORDERED: Sodium Chloride 0.9% 1000 ML 1,000 ML ONE (12:33)
[2023-07-06 12:36] LABS: Absolute Neutrophil Ct (ANC) 9.87 x10^3/uL (1.4-6.9); BASOPHIL % 0.3 % (0.0-0.4); Basophil (Absolute #) 0.03 x10^3/uL (0-0.4); Eosinophil % 0.7 % (0.00-5.0); Eosinophil (Absolute #) 0.07 x10^3/uL (0-0.5); Hematocrit 45.7 % (35-47); Hemoglobin 15.2 g/dL (12.0-16.0); IMMATURE GRAN # 0.03 x10^3u/L (0.00-0.03); IMMATURE GRAN % 0.3 % (0.00-0.4); Lymphocyte (Absolute #) 0.28 x10^3/uL (1.0-4.6); Lymphocytes % 2.6 % (24.0-44.0); Mean Cell Volume 90.7 fL (78-100); Mean Corpuscular Hemoglobin 30.2 pg (26-32); Mean Corpuscular Hgb Concent. 33.3 g/dL (32-36); Mean Platelet Volume 11.3 fL (7.5-11.0); Monocyte (Absolute #) 0.44 x10^3/uL (0.0-1.3); Monocytes % 4.1 % (0.0-12.0); Platelet Count 212 x10^3/uL (150-450); Red Blood Count 5.04 x10^6/uL (4.1-5.4); Red Cell Distribution Width 12.9 % (11.5-14.0); White Blood Count 10.7 x10^3/uL (4.0-10.5)
--- NOTE | 2023-07-06 12:40 | ERPHSYRPT ---
- History of Present Illness Time Seen by Provider: 07/06/23 12:01 Historian: patient Exam Limitations: no limitations Patient Subjective Stated Complaint: Pt states "I have been vomiting all morning." Triage Nursing Assessment: PT presented alert and oriented X 3, skin pwd. Pt ambulates with an upright steady gait, able to speak in clear full sentences. PT vomited just prior to arrival in plastic bag Physician History: 52-year-old female with history of anxiety presented in the ER with chief complaint of sudden onset upper abdominal pain with multiple episodes of nonprojectile, nonbilious vomiting without hematemesis waking her up from sleep around 4 AM. Patient reports she is not able to hold anything down. Pain is sharp cramping, aggravated with vomiting. Currently having minimal discomfort in the upper abdomen. Does have history of cholecystectomy. Denies any diarrhea or constipation. No fever or chills reported. Timing/Duration: today Activities at Onset: sleep Quality: sharpness Abdominal Pain Onset Location: RUQ, epigastric, periumbilical Pain Radiation: no radiation Severity of Pain-Max: moderate Severity of Pain-Current: mild Modifying Factors: Worsens With: vomiting Associated Symptoms: nausea, vomiting Previous symptoms: no prior history Allergies/Adverse Reactions: cephalexin [From Keflex] Allergy (Severe, Verified 08/15/22 21:37) Cephalosporins Allergy (Severe, Verified 08/15/22 21:37) ANAPHALAXIS Sulfa (Sulfonamide Antibiotics) Allergy (Severe, Verified 08/15/22 21:37) Swelling sulfamethoxazole [From Bactrim] Allergy (Severe, Verified 08/15/22 21:37) Swelling of Tongue and Lips trimethoprim [From Bactrim] Allergy (Severe, Verified 08/15/22 21:37) Swelling of Tongue and Lips bee venom protein (honey bee) Allergy (Intermediate, Verified 08/15/22 21:37) Swelling Home Medications: Nadolol 20 mg [Corgard 20 MG] 10 mg PO HS 07/22/22 [History] buPROPion HCL [Wellbutrin Xl] 300 mg PO DAILY 07/06/23 [History] Hx Tetanus, Diphtheria Vaccination/Date Given: Yes Hx Influenza Vaccination/Date Given: Yes Hx Pneumococcal Vaccination/Date Given: No Immunizations Up to Date: Yes Travel Risk - International Travel Have you traveled outside of the country in past 3 weeks: No - Coronavirus Screening Are you exhibiting any of the following symptoms?: Yes Symptoms: Vomiting/Diarrhea Close contact with a COVID-19 positive Pt in past 14-21 Days: No - Vaccine Status Have you recieved a Covid-19 vaccination: Yes 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: [employer] - Review of Systems Constitutional: No Symptoms Eyes: No Symptoms Ears, Nose, & Throat: No Symptoms Respiratory: No Symptoms Cardiac: No Symptoms Abdominal/Gastrointestinal: Abdominal Pain, Nausea, Vomiting Genitourinary Symptoms: No Symptoms Skin: No Symptoms Neurological: No Symptoms Endocrine: No Symptoms Hematologic/Lymphatic: No Symptoms - Past Medical History Pertinent Past Medical History: Yes Neurological History: Migraines ENT History: No Pertinent History Cardiac History: Arrhythmia, Other Respiratory History: Other Endocrine Medical History: No Pertinent History Musculoskeletal History: Degenerative Disk Disease, Osteoarthritis GI Medical History: No Pertinent History History: No Pertinent History Psycho-Social History: No Pertinent History Female Reproductive Disorders: No Pertinent History Other Medical History: COVID 2020, MITRAL VALVE PROLAPSE. SX HX: HYSTERECTOMY, TUBAL LIGATION, BREAST AUGMENTATION, CHOLECYSTECTOMY, ABDOMINAL HERNIA REPAIR - Past Surgical History Past Surgical History: Yes Neuro Surgical History: No Pertinent History Cardiac: No Pertinent History Respiratory: No Pertinent History Gastrointestinal: Cholecystectomy, Hernia Repair Genitourinary: No Pertinent History Musculoskeletal: No Pertinent History, Orthopedic Surgery Female Surgical History: Hysterectomy, Tubal Ligation Other Surgical History: breast implants, skin cancer removal, back surgery - Social History Smoking Status: Former smoker How long have you smoked: 35 Exposure to second hand smoke: No Drug Use: none Patient Lives Alone: No - Nursing Vital Signs Nursing Vital Signs: Initial Vital Signs Temperature 97.0 F 07/06/23 11:58 Pulse Rate 74 07/06/23 11:58 Respiratory Rate 20 07/06/23 11:58 Blood Pressure 149/118 07/06/23 11:58 O2 Sat by Pulse Oximetry 100 07/06/23 11:58 Pain Scale Pain Intensity 3 - Physical Exam General Appearance: no apparent distress, alert Eye Exam: PERRL/EOMI Ears, Nose, Throat Exam: normal ENT inspection, TMs normal, pharynx normal, moist mucous membranes Neck Exam: normal inspection, non-tender, supple, full range of motion Respiratory Exam: normal breath sounds, lungs clear Cardiovascular Exam: regular rate/rhythm, normal heart sounds Gastrointestinal/Abdomen Exam: soft, normal bowel sounds, tenderness (Minimal tenderness to deep palpation in the upper abdomen) Back Exam: normal inspection, No CVA tenderness Extremity Exam: normal inspection, normal range of motion Neurologic Exam: alert, oriented x 3, cooperative Skin Exam: normal color SpO2 Interpretation: normal SpO2: 100 O2 Delivery: Room Air Ordered Tests: Active Orders 24 hr Category Date Time Status IV Insertion STAT Care 07/06/23 12:24 Active NPO (ED) STAT Care 07/06/23 12:24 Active ABDOMEN AND PELVIS W CONTRAST [CT] Stat Exams 07/06/23 12:26 Completed CBC W DIFF Stat Lab 07/06/23 12:34 Completed CMP Stat Lab 07/06/23 12:32 Completed CULTURE,URINE Stat Lab 07/06/23 12:32 Received LIPASE Stat Lab 07/06/23 12:32 Completed UA W/RFX UR CULTURE Stat Lab 07/06/23 12:32 Completed Medication Summary Generic Name Dose Route Start Last Admin Trade Name Freq PRN Reason Stop Dose Admin Ciprofloxacin 500 mg 07/06/23 22:00 07/06/23 13:24 Ciprofloxacin 500 Mg Tablet PO 08/05/23 21:59 500 mg BID SATISH Administration Discontinued Medications Generic Name Dose Route Start Last Admin Trade Name Freq PRN Reason Stop Dose Admin Sodium Chloride 1,000 mls @ 999 mls/hr 07/06/23 12:24 07/06/23 12:34 Sodium Chloride 0.9% 1000 Ml IV 07/06/23 13:24 999 mls/hr .Q1H1M STA Administration Sodium Chloride Confirm 07/06/23 12:33 Sodium Chloride 0.9% 1000 Ml Administered 07/06/23 12:34 Dose 1,000 mls @ ud .ROUTE .STK-MED ONE Ondansetron HCl 4 mg 07/06/23 12:24 07/06/23 12:34 Ondansetron Hcl 4 Mg/2 Ml Vial IV 07/06/23 12:25 4 mg STAT ONE Administration Ondansetron HCl Confirm 07/06/23 12:33 Ondansetron Hcl 4 Mg/2 Ml Vial Administered 07/06/23 12:34 Dose 4 mg .ROUTE .STK-MED ONE Lab/Rad Data: Laboratory Result Diagrams 07/06/23 12:34 07/06/23 12:32 Laboratory Results 09/01/23 09/01/23 09/01/23 Range/Units 12:34 12:32 12:32 WBC 10.7 H (4.0-10.5) x10^3/uL RBC 5.04 (4.1-5.4) x10^6/uL Hgb 15.2 (12.0-16.0) g/dL Hct 45.7 (35-47) % MCV 90.7 (78-100) fL MCH 30.2 (26-32) pg MCHC 33.3 (32-36) g/dL RDW 12.9 (11.5-14.0) % Plt Count 212 (150-450) x10^3/uL MPV 11.3 H (7.5-11.0) fL Gran % 92.0 H (36.0-66.0) % Immature Gran % (Auto) 0.3 (0.00-0.4) % Nucleat RBC Rel Count 0.0 (0.00-0.1) % Eos # (Auto) 0.07 (0-0.5) x10^3/uL Immature Gran # (Auto) 0.03 (0.00-0.03) x10^3u/L Absolute Lymphs (auto) 0.28 L (1.0-4.6) x10^3/uL Absolute Monos (auto) 0.44 (0.0-1.3) x10^3/uL Absolute Nucleated RBC 0.00 (0.00-0.01) x10^3u/L Lymphocytes % 2.6 L (24.0-44.0) % Monocytes % 4.1 (0.0-12.0) % Eosinophils % 0.7 (0.00-5.0) % Basophils % 0.3 (0.0-0.4) % Absolute Granulocytes 9.87 H (1.4-6.9) x10^3/uL Basophils # 0.03 (0-0.4) x10^3/uL Sodium 141 (137-145) mmol/L Potassium 4.3 (3.5-5.1) mmol/L Chloride 103 (98-107) mmol/L Carbon Dioxide 25 (22-30) mmol/L Anion Gap 16.8 H (5-15) MEQ/L BUN 22 H (7-17) mg/dL Creatinine 0.68 (0.52-1.04) mg/dL Estimated GFR > 60.0 ML/MIN Glucose 110 H (74-106) mg/dL Calcium 8.5 (8.4-10.2) mg/dL Total Bilirubin 0.50 (0.2-1.3) mg/dL AST 34 (14-36) U/L ALT 33 (0-35) U/L Alkaline Phosphatase 82 (38-126) U/L Serum Total Protein 7.6 (6.3-8.2) g/dL Albumin 4.7 (3.5-5.0) g/dL Lipase 377 H (23-300) U/L Urine Color Dark Yellow A (Yellow) Urine Appearance Cloudy A (Clear) Urine pH 7.5 (4.6-8.0) Ur Specific [place] >=1.030 A (1.005-1.030) Urine Protein Trace A (Negative) Urine Glucose (UA) Negative (Negative) mg/dL Urine Ketones Trace A (Negative) Urine Blood Negative (Negative) Urine Nitrite Negative (Negative) Urine Bilirubin Negative (Negative) Urine Urobilinogen 1.0 A (0.2) mg/dL Ur Leukocyte Esterase Trace A (Negative) U Hyaline Cast (Auto) 3-5 A (0-2) /LPF Urine Microscopic RBC 11-20 A (0-5) /HPF Urine Microscopic WBC 3-5 (0-5) /HPF Ur Epithelial Cells Many A (None Seen) /HPF Urine Bacteria Moderate A (None Seen) /HPF Urine Culture Reflexed YES (NO) Slides for Path Review YES - Progress Progress: improved, re-examined Progress Note: 07/06/23 12:40 52-year-old female with history of anxiety presented in the ER with chief complaint of sudden onset upper abdominal pain with multiple episodes of nonprojectile, nonbilious vomiting without hematemesis waking her up from sleep around 4 AM. Patient reports she is not able to hold anything down. Pain is sharp cramping, aggravated with vomiting. Currently having minimal discomfort in the upper abdomen. Does have history of cholecystectomy. Denies any diarrhea or constipation. No fever or chills reported. Patient has minimal tenderness in the upper abdomen. Bowel sounds positive. Not in any distress. Hemodynamically stable. We will do acute abdomen work-up including CT abdomen pelvis. She is offered pain medication which she declined. We will give her fluids and Zofran for symptomatic relief. 07/06/23 13:42 She is feeling much improved on reevaluation. No abdominal tenderness. No vomiting after Zofran. Work-up showed white count of 12, mildly elevated lipase of 377 and does have UTI. Given a dose of Levaquin. Patient CT abdomen pelvis showed finding consistent with enteritis. Counseled pt/family regarding: lab results, diagnosis, need for follow-up, rad results Medical Desision Making - Diagnostic Testing Diagnostic test were ordered, analyzed, and reviewed by me: Yes Radiological Interpretation: Reviewed by me - Risk of complications The pt has a mod risk of morbidity or mortality based on: Need for prescription drug management - Departure Departure Disposition: Home Clinical Impression: Enteritis, Acute UTI (urinary tract infection), Constipation Condition: Stable Critical Care Time: No Referrals: CARLOS MAX [Primary Care Provider] - Follow Up with PCP/3 days Instructions: Nausea and Vomiting, Adult (DC) Additional Instructions: Drink plenty of fluids to keep yourself well-hydrated. Take Tylenol/Zofran as needed. Follow-up with your primary care physician for reevaluation. Return to ER for increasing pain intractable nausea vomiting/fever chills etc. Prescriptions: Ciprofloxacin [Cipro 500 MG] 500 mg PO BID #14 tablet Ondansetron ODT 4 MG [Zofran Odt 4 mg] 1 ea PO QIDPRN PRN #7 tablet PRN Reason: n/v
[2023-07-06 12:48] LABS: Appearance Cloudy (Clear); Bacteria Moderate /HPF (None Seen); Bilirubin Negative (Negative); Blood Negative (Negative); Epithelial Cells Many /HPF (None Seen); Glucose, Urine Negative (Negative); Ketones Trace (Negative); Leukocyte Esterase Trace (Negative); Nitrite Negative (Negative); Ph 7.5 (4.6-8.0); Protein,Urine Dip Trace (Negative); Specific Gravity >=1.030 (1.005-1.030)
[2023-07-06 12:55] LABS: ALBUMIN 4.7 g/dL (3.5-5.0); ALKALINE PHOSPHATASE 82 U/L (38-126); ANION GAP 16.8 MEQ/L (5-15); BLOOD UREA NITROGEN 22 mg/dL (7-17); CHLORIDE 103 mmol/L (98-107); Calcium 8.5 mg/dL (8.4-10.2); Carbon Dioxide 25 mmol/L (22-30); Creatinine 1 0.68 mg/dL (0.52-1.04); EST GLOMERULAR FILTRATION RATE > 60.0 ML/MIN; Glucose 110 mg/dL (74-106); LIPASE 377 U/L (23-300); Potassium 4.3 mmol/L (3.5-5.1); SGOT/AST 34 U/L (14-36); SGPT/ALT 33 U/L (0-35); SODIUM 141 mmol/L (137-145); Total Protein 7.6 g/dL (6.3-8.2)
[2023-07-06 13:02] VITALS: BP 147/101; PULSE 75
[2023-07-06 13:07] LABS: Slide Review 1 YES
[2023-07-06 13:08] LABS: ADD URINE CULTURE? YES (NO)
--- NOTE | 2023-07-06 13:15 | XRAY ---
Indication: Abdomen pain, nausea, and vomiting 1 day. Multiple contiguous axial images obtained through the and pelvis using 80 cc Isovue 370 contrast. Comparison: September 14, 2017 Lung bases clear. Heart not enlarged. Again partially visualized bilateral breast implants. Noncontrasted stomach and bowel loops remain nonobstructed with normal appendix. A few jejunal bowel loops now demonstrates circumferential bowel wall thickening/enhancement favoring enteritis. There remains mild diffuse scattered colonic fecal debris throughout including rectum. Again previous hysterectomy and cholecystectomy. No free fluid/air. Remaining liver, pancreas, spleen, adrenal glands, kidneys, ureters, bladder, and aorta are unremarkable. No pathologic retro-peritoneal lymphadenopathy. Osseous structures intact with interval L5-S1 fusion surgery. Impression: New CT findings as detailed favoring enteritis. Again diffuse fecal stasis. Remaining CT abdomen/pelvis without contrast exam negative.
[2023-07-06] MEDS ORDERED: Cipro 500 MG ONE (13:23)
[2023-07-06 13:48] VITALS: O2SAT 100
[2023-07-06] MEDS ORDERED: Cipro 500 MG PO SCH (22:00)
== END 2023-07-06 13:57 | disposition home or self-care (01) ==
LOC: ED 11:53
DX: N39.0 Urinary tract infection, site not specified (principal); K52.9 Noninfective gastroenteritis and colitis, unspecified; K59.00 Constipation, unspecified; R11.2 Nausea with vomiting, unspecified; R10.11 Right upper quadrant pain; R10.12 Left upper quadrant pain; Z79.899 Other long term (current) drug therapy; Z86.16 Personal history of COVID-19
CPT/HCPCS: 36000; 36415; 74177; 80053; 81001; 83690; 85025; 87086; 96360; 96374; 99284; J2405; A9270-GY

== ENCOUNTER 2024-11-06 07:47 | Day surgery (SDC) | payer BC ==
--- NOTE | 2024-10-31 08:35 | HP ---
HISTORY OF PRESENT ILLNESS: The patient is a 54-year-old female who presents with complaints of some dysphagia. Has some bread and meat getting stuck in her upper esophagus. She does note a history of having a multinodular goiter. She denies heartburn. She did have a colonoscopy in 2014. She had some polyps. She has a little bit of constipation, little bit of some hemorrhoidal bleeding. She said her uncle had colon cancer. PAST MEDICAL HISTORY: Migraines, thyroid nodules, arthritis, anxiety, depression. MEDICATIONS: Bupropion, Imitrex, Zofran, Benadryl, Tylenol. PAST SURGICAL HISTORY: Cholecystectomy, skin cancer excision, back surgery, hysterectomy. FAMILY HISTORY: Stroke, heart disease, thyroid, kidney cancer. SOCIAL HISTORY: Occasional alcohol. REVIEW OF SYSTEMS: CONSTITUTIONAL: Denies fever or chills. CHEST: Denies shortness of breath. CARDIOVASCULAR: Denies chest pain. ABDOMEN: Denies abdominal pain. PHYSICAL EXAMINATION: GENERAL: No acute distress. CARDIOVASCULAR: Regular rate and rhythm. RESPIRATORY: Nonlabored. No shortness of breath. ABDOMEN: Soft. ASSESSMENT: Dysphagia. History of polyps. PLAN: EGD and possible dilatation, colonoscopy with Dr. Demetri Palumbo. This report was dictated for Dr. Palumbo by Lilian Shah NP.
[2024-11-06 08:05] VITALS: RESP 16
[2024-11-06] MEDS ORDERED: propofoL IV ONE ×2 (10:32→10:48)
[2024-11-06] MEDS ORDERED: GlucaGen 1 MG ONE (10:49)
[2024-11-06 11:52] VITALS: BP 121/51; PULSE 67; TEMP 97; O2SAT 97
--- NOTE | 2024-11-07 12:20 | OP ---
SURGERY DATE/TIME: 11/06/2024 [id number] PREOPERATIVE DIAGNOSIS: Dysphagia and screening. POSTOPERATIVE DIAGNOSIS: Dysphagia and screening. PROCEDURES: 1. Esophagogastroduodenoscopy. 2. Colonoscopy. SURGEON: Demetri Palumbo M.D. DESCRIPTION OF PROCEDURE: Patient was taken to endoscopy. Left lateral decubitus position. Scope introduced. Pharyngoesophageal junction grade 2/4 GERD. The esophagus, otherwise, was satisfactory. Stomach normal. Pylorus normal. Duodenal bulb normal. Second portion normal. Scope looped upon itself, satisfactory from below. Scope withdrawn. Grade 2 GERD. Nothing specific in the esophagus. Anal digital examination satisfactory. Scope advanced to the cecum. Base of cecum, ileocecal valve, appendiceal orifice was normal. Ascending, hepatic, transverse, splenic, descending, sigmoid, rectum and anus was normal. Patient has been placed on Protonix and screening 5 to 10 years.
== END 2024-11-06 11:58 | disposition home or self-care (01) ==
LOC: SDC 07:47
PROVIDERS: ATTEND Surgery
DX: Z12.11 Encounter for screening for malignant neoplasm of colon (principal); R13.10 Dysphagia, unspecified; K21.9 Gastro-esophageal reflux disease without esophagitis; Z80.0 Family history of malignant neoplasm of digestive organs
CPT/HCPCS: J1610; J2704

== ENCOUNTER 2025-07-18 03:11 | Emergency (ER) | payer BC ==
[2025-07-18 03:18] VITALS: TEMP 97.2
--- NOTE | 2025-07-18 03:33 | ERPHSYRPT ---
- History of Present Illness Time Seen by Provider: 07/18/25 03:16 Historian: patient Exam Limitations: no limitations Patient Subjective Stated Complaint: pt reports chest pain beginning yesterday afternoon. reports pain is at the left side of her chest and is squeezing in nature. pt states she has not been feeling well and went to bed early last night hoping the pain would subside and it did not. pt took an 81mg aspirin and a 0.5mg ativan with no improvement. pt states she is currently being treated for pink eye. Triage Nursing Assessment: pt is aox3, pupils perrl, afebrile, resps easy and non labored, cap refill < 3 seconds, radial pulses strong and equal, no edema appreciated, pt skin pink warm dry. Physician History: 54-year-old female presents to the emergency room with squeezing type chest pain that began like yesterday afternoon into the evening patient reports she took an Ativan and aspirin with no improvement but she did go to bed and then woke up throughout the night with the chest discomfort she reports the pain feels like it is squeezing upon deep inspiration she denies any sick contacts denies any fevers denies any nausea vomiting diarrhea denies any prior stents she reports she had a calcium test score which was normal she sees Dr. Lee from cardiology Timing/Duration: yesterday Activities at Onset: none Quality: tightness Location: central Severity of Pain-Max: mild Severity of Pain-Current: mild Modifying Factors: Worsens With: coughing, defecating, lying down, morphine, movement, nitroglycerin Associated Symptoms: No denies symptoms Prior Chest Pain/Cardiac Workup: recently seen/treated Nitro Today/Relief: no nitro taken today Aspirin Treatment Today: 81 mg x 1 Allergies/Adverse Reactions: cephalexin [From Keflex] Allergy (Severe, Verified 07/18/25 03:24) Cephalosporins Allergy (Severe, Verified 07/18/25 03:24) ANAPHALAXIS Sulfa (Sulfonamide Antibiotics) Allergy (Severe, Verified 07/18/25 03:24) Swelling sulfamethoxazole [From Bactrim] Allergy (Severe, Verified 07/18/25 03:24) Swelling of Tongue and Lips trimethoprim [From Bactrim] Allergy (Severe, Verified 07/18/25 03:24) Swelling of Tongue and Lips bee venom protein (honey bee) Allergy (Intermediate, Verified 07/18/25 03:24) Swelling Home Medications: Nadolol 20 mg [Corgard 20 MG] 10 mg PO HS 07/22/22 [History] buPROPion HCL [Wellbutrin Xl] 150 mg PO DAILY 07/06/23 [History] Diphenhydramine HCl 25 mg [Benadryl 25 mg Capsule] 50 mg PO HS PRN PRN 10/27/24 [History] SUMAtriptan succinate [Imitrex 50 mg] 50 mg PO DAILY PRN 10/27/24 [History] PANTOPRAZOLE 40 mg Tablet [Protonix 40MG Tablet] 40 mg PO DAILY 07/18/25 [History] Hx Tetanus, Diphtheria Vaccination/Date Given: Yes Hx Influenza Vaccination/Date Given: Yes Hx Pneumococcal Vaccination/Date Given: No Immunizations Up to Date: Yes Travel Risk - International Travel Have you traveled outside of the country in past 3 weeks: No - Emerging Infectious Disease Are you exhibiting symptoms associated with any current EIDs: No - Review of Systems Constitutional: No Fever, No Chills Eyes: No Symptoms Ears, Nose, & Throat: No Symptoms Respiratory: No Cough, No Dyspnea Cardiac: Chest Pain, No Edema, No Syncope Abdominal/Gastrointestinal: No Abdominal Pain, No Nausea, No Vomiting, No Diarrhea Genitourinary Symptoms: No Dysuria Musculoskeletal: No Back Pain, No Neck Pain Skin: No Rash Neurological: No Dizziness, No Focal Weakness, No Sensory Changes Psychological: No Symptoms Endocrine: No Symptoms All Other Systems: Reviewed and Negative - Past Medical History Pertinent Past Medical History: Yes Neurological History: Migraines ENT History: No Pertinent History Cardiac History: Arrhythmia, Other Respiratory History: Other Endocrine Medical History: No Pertinent History Musculoskeletal History: Osteoarthritis, Degenerative Disk Disease GI Medical History: No Pertinent History History: No Pertinent History Psycho-Social History: No Pertinent History Female Reproductive Disorders: No Pertinent History Other Medical History: COVID 2020, MITRAL VALVE PROLAPSE. SX HX: HYSTERECTOMY, TUBAL LIGATION, BREAST AUGMENTATION, CHOLECYSTECTOMY, ABDOMINAL HERNIA REPAIR - Past Surgical History Past Surgical History: Yes Neuro Surgical History: No Pertinent History Cardiac: No Pertinent History Respiratory: No Pertinent History Gastrointestinal: Cholecystectomy, Hernia Repair Genitourinary: No Pertinent History Musculoskeletal: No Pertinent History, Orthopedic Surgery Female Surgical History: Hysterectomy, Tubal Ligation Other Surgical History: breast implants, skin cancer removal, back surgery. colonoscopy and EGD 11/2024 - Female History Hx Last Menstrual Period: HYST Hx Now: No - Social History Smoking Status: Former smoker Exposure to second hand smoke: Yes Drug Use: none - Social Determinants of Health Will the patient participate in the screening: Yes Do you worry about a steady place to live?: No Do you have any problems with any of the following?: No known problems In the past 12 months,have you had to go without utilities?: No Transportation Issues: No Has anyone in your support network made you feel unsafe?: No Have you or anyone in your house had to go w/o enough food: No - Nursing Vital Signs Nursing Vital Signs: Initial Vital Signs Temperature 97.2 F 07/18/25 03:12 Pulse Rate 70 07/18/25 03:12 Respiratory Rate 19 07/18/25 03:12 Blood Pressure 153/94 07/18/25 03:12 O2 Sat by Pulse Oximetry 99 07/18/25 03:12 Pain Scale Pain Intensity 6 - Physical Exam General Appearance: no apparent distress, alert Eye Exam: PERRL/EOMI, eyes nml inspection Ears, Nose, Throat Exam: normal ENT inspection, moist mucous membranes Neck Exam: normal inspection, non-tender, supple, full range of motion Respiratory Exam: normal breath sounds, lungs clear, No respiratory distress Cardiovascular Exam: regular rate/rhythm, normal heart sounds Gastrointestinal/Abdomen Exam: soft, No tenderness, No mass Back Exam: normal inspection, No CVA tenderness, No vertebral tenderness Extremity Exam: normal inspection, normal range of motion Neurologic Exam: alert, oriented x 3, cooperative, normal mood/affect, sensation nml, No motor deficits Skin Exam: normal color, warm, dry SpO2: 99 - Course Nursing assessment & vital signs reviewed: Yes EKG Interpreted by Me: RATE (66), Sinus Rhythm, Non-specific ST Changes, Other (no STEMI) Ordered Tests: Active Orders 24 hr Category Date Time Status Food And Beverage Coordinator STAT Care 07/18/25 03:27 Active EKG-ER Only STAT Care 07/18/25 03:27 Active IV Insertion STAT Care 07/18/25 03:27 Active Pulse Oximetry (ED) STAT Care 07/18/25 03:27 Active CHEST 2 VIEWS (PA AND LAT) Stat Exams 07/18/25 03:30 Taken CBC W DIFF Stat Lab 07/18/25 03:39 Completed CMP Stat Lab 07/18/25 03:39 Completed D-DIMER QUANTITATIVE Stat Lab 07/18/25 03:39 Completed PROTIME WITH INR Stat Lab 07/18/25 03:39 Completed PTT Stat Lab 07/18/25 03:39 Completed TROPONIN Q3H Lab 07/18/25 03:39 Completed TROPONIN Q3H Lab 07/18/25 06:09 Received Medication Summary Discontinued Medications Generic Name Dose Route Start Last Admin Trade Name Clay PRN Reason Stop Dose Admin Nitroglycerin 0.4 mg 07/18/25 04:39 07/18/25 04:42 Nitroglycerin 0.4 Mg (Ed) 0.4 Mg Tab.Subl SL 07/18/25 04:40 0.4 mg STAT ONE Administration Nitroglycerin Confirm 07/18/25 04:42 Nitroglycerin 0.4 Mg (Ed) 0.4 Mg Tab.Subl Administered 07/18/25 04:43 Dose 0.4 mg SL .STK-MED ONE Lab/Rad Data: Laboratory Result Diagrams 07/18/25 03:39 07/18/25 03:39 Laboratory Results 07/18/25 07/18/25 07/18/25 Range/Units 03:39 03:39 03:39 WBC (3.98-10.04) x10^3/uL RBC (3.93-5.22) x10^6/uL Hgb (11.2-15.7) g/dL Hct (34.1-44.9) % MCV (79.4-94.8) fL MCH (25.6-32.2) pg MCHC (32.2-35.5) g/dL RDW (11.7-14.4) % Plt Count (182-369) x10^3/uL MPV (9.4-12.3) fL Gran % (34.0-71.1) % Immature Gran % (Auto) (0.001-0.429) % Nucleat RBC Rel Count (0.00-0.2) % Eos # (Auto) (0.04-0.36) x10^3/uL Immature Gran # (Auto) (0.001-0.031) x10^3u/L Absolute Lymphs (auto) (1.18-3.74) x10^3/uL Absolute Monos (auto) (0.24-0.86) x10^3/uL Absolute Nucleated RBC (0.00-0.012) x10^3u/L Lymphocytes % (19.3-51.7) % Monocytes % (4.7-12.5) % Eosinophils % (0.7-5.8) % Basophils % (0.1-1.2) % Absolute Granulocytes (1.56-6.13) x10^3/uL Basophils # (0.01-0.08) x10^3/uL PT 10.0 (9.4-12.5) SECONDS INR 0.91 (0.8-3.0) APTT 28.9 (25.1-36.5) SECONDS D-Dimer < 0.19 (0.0-0.50) mg/L Sodium 138 (135-145) mmol/L Potassium 4.3 (3.5-5.1) mmol/L Chloride 105 (98-107) mmol/L Carbon Dioxide 24 (22-30) mmol/L Anion Gap 13.1 (5-15) MEQ/L BUN 28 H (7-17) mg/dL Creatinine 0.87 (0.52-1.04) mg/dL Estimated GFR 79.6 ML/MIN Glucose 102 (74-106) mg/dL Calcium 9.3 (8.4-10.2) mg/dL Total Bilirubin 0.20 (0.2-1.3) mg/dL AST 29 (14-36) U/L ALT 20 (0-35) U/L Alkaline Phosphatase 90 (38-126) U/L Troponin I < 0.012 (0.000-0.033) ng/mL Serum Total Protein 6.6 (6.3-8.2) g/dL Albumin 4.2 (3.5-5.0) g/dL 07/18/25 Range/Units 03:39 WBC 5.7 (3.98-10.04) x10^3/uL RBC 4.30 (3.93-5.22) x10^6/uL Hgb 12.5 (11.2-15.7) g/dL Hct 38.0 (34.1-44.9) % MCV 88.4 (79.4-94.8) fL MCH 29.1 (25.6-32.2) pg MCHC 32.9 (32.2-35.5) g/dL RDW 12.9 (11.7-14.4) % Plt Count 188 (182-369) x10^3/uL MPV 11.4 (9.4-12.3) fL Gran % 55.0 (34.0-71.1) % Immature Gran % (Auto) 0.2 (0.001-0.429) % Nucleat RBC Rel Count 0.0 (0.00-0.2) % Eos # (Auto) 0.11 (0.04-0.36) x10^3/uL Immature Gran # (Auto) 0.01 (0.001-0.031) x10^3u/L Absolute Lymphs (auto) 1.78 (1.18-3.74) x10^3/uL Absolute Monos (auto) 0.64 (0.24-0.86) x10^3/uL Absolute Nucleated RBC 0.00 (0.00-0.012) x10^3u/L Lymphocytes % 31.4 (19.3-51.7) % Monocytes % 11.3 (4.7-12.5) % Eosinophils % 1.9 (0.7-5.8) % Basophils % 0.2 (0.1-1.2) % Absolute Granulocytes 3.11 (1.56-6.13) x10^3/uL Basophils # 0.01 (0.01-0.08) x10^3/uL PT (9.4-12.5) SECONDS INR (0.8-3.0) APTT (25.1-36.5) SECONDS D-Dimer (0.0-0.50) mg/L Sodium (135-145) mmol/L Potassium (3.5-5.1) mmol/L Chloride (98-107) mmol/L Carbon Dioxide (22-30) mmol/L Anion Gap (5-15) MEQ/L BUN (7-17) mg/dL Creatinine (0.52-1.04) mg/dL Estimated GFR ML/MIN Glucose (74-106) mg/dL Calcium (8.4-10.2) mg/dL Total Bilirubin (0.2-1.3) mg/dL AST (14-36) U/L ALT (0-35) U/L Alkaline Phosphatase (38-126) U/L Troponin I (0.000-0.033) ng/mL Serum Total Protein (6.3-8.2) g/dL Albumin (3.5-5.0) g/dL - Departure Clinical Impression: Chest pain Qualifiers: Chest pain type: unspecified Qualified Code(s): R07.9 - Chest pain, unspecified Condition: Stable Critical Care Time: No Referrals: CARLOS MAX [Primary Care Provider, [facility]] - Follow up/PCP as directed MELANIA ROBBINS [CONSULTING PHYSICIAN, CARDIOLOGY] - Follow up/PCP as directed Instructions: Chest Pain (DC)
[2025-07-18 03:45] LABS: BASOPHIL % 0.2 % (0.1-1.2); Basophil (Absolute #) 0.01 x10^3/uL (0.01-0.08); Eosinophil (Absolute #) 0.11 x10^3/uL (0.04-0.36); Hematocrit 38.0 % (34.1-44.9); Hemoglobin 12.5 g/dL (11.2-15.7); IMMATURE GRAN # 0.01 x10^3u/L (0.001-0.031); IMMATURE GRAN % 0.2 % (0.001-0.429); Lymphocyte (Absolute #) 1.78 x10^3/uL (1.18-3.74); Mean Corpuscular Hemoglobin 29.1 pg (25.6-32.2); Mean Corpuscular Hgb Concent. 32.9 g/dL (32.2-35.5); Monocyte (Absolute #) 0.64 x10^3/uL (0.24-0.86); NUCLEATED RBC # 0.00 x10^3u/L (0.00-0.012); NUCLEATED RBC % 0.0 % (0.00-0.2); Platelet Count 188 x10^3/uL (182-369); Red Blood Count 4.30 x10^6/uL (3.93-5.22); White Blood Count 5.7 x10^3/uL (3.98-10.04)
[2025-07-18 03:50] LABS: Calcium 9.3 mg/dL (8.4-10.2); Carbon Dioxide 24.0 mmol/L (22-30); Creatinine 1 0.87 mg/dL (0.52-1.04); EST GLOMERULAR FILTRATION RATE 79.6 ML/MIN; Glucose 102.0 mg/dL (74-106); Potassium 4.3 mmol/L (3.5-5.1); SGOT/AST 29.0 U/L (14-36); SGPT/ALT 20.0 U/L (0-35); Total Protein 6.6 g/dL (6.3-8.2)
[2025-07-18 03:53] LABS: INR 0.91 (0.8-3.0); PROTIME 10.0 SECONDS (9.4-12.5); PTT 28.9 SECONDS (25.1-36.5)
[2025-07-18] MEDS: Nitrostat 0.4 MG (ED) SL ONE (04:42)
[2025-07-18] MEDS ORDERED: Nitrostat 0.4 MG (ED) SL ONE (04:42)
[2025-07-18 06:32] VITALS: O2SAT 99
[2025-07-18 06:57] VITALS: BP 137/93; PULSE 66; RESP 16
--- NOTE | 2025-07-18 08:18 | XRAY ---
Indication: Chest pain. Comparison: April 25, 2025 PA/lateral chest again demonstrates normal heart and lungs with incidental right base calcified granuloma. Bony thorax intact again with incidental bilateral breast implants. No new/acute findings.
== END 2025-07-18 06:56 | disposition home or self-care (01) ==
LOC: ED 03:11
DX: R07.9 Chest pain, unspecified (principal); Z79.899 Other long term (current) drug therapy